=== PATIENT | male | born 1970 | race Caucasian/White ===

== ENCOUNTER → 2022-10-16 14:29 | Outpatient (CLI) | payer OTHER, SELFPAY ==
--- NOTE | ~2022-10-16 | CT_ITS ---
EXAMINATION:CT diagnostic chest wo con DATE: 10/16/2022 14:44 INDICATION: Shortness of breath. TECHNIQUE: Computed tomography (CT) of the chest was performed without intravenous contrast. Automate d exposure control and iterative reconstruction technique were employed. The dose-length product (DLP ) was 583.13 mGy-cm. COMPARISON: CT abdomen and pelvis 05/10/2018 FINDINGS: There is mild scarring at left lung apex. There is mild emphysema. There is mild atelectasi s bilaterally. No pleural effusion. There is mild right-sided gynecomastia. The heart size is normal. There are coronary artery calcifications. No pericardial effusion. There are cysts in the liver wyatt uring up to 2.2 cm. There is an old healed fracture of right clavicle. There is mild thoracic spondyl osis. There is mild chronic anterior wedging of multiple lower thoracic vertebral bodies. IMPRESSION: 1. Mild emphysema. Reviewed, dictated and finalized at [facility] IMPRESSION: 1. Mild emphysema.
== END ==
PROVIDERS: PCP Student in an Organized Health Care Education/Training Program; Visit Provider Student in an Organized Health Care Education/Training Program
DX: R06.02 Shortness of breath (principal); J43.9 Emphysema, unspecified
CPT/HCPCS: 71250